=== PATIENT | female | born 1945 | race Caucasian/White ===

== ENCOUNTER → 2021-05-09 | Outpatient (CLI) | payer OTHER | LOC: RAD 16:41 | DX: J44.9 Chronic obstructive pulmonary disease, unspecified (principal); R91.8 Other nonspecific abnormal finding of lung field | CPT/HCPCS: 71046 ==

== ENCOUNTER → 2021-05-09 | Outpatient (CLI) | payer OTHER | LOC: HEART 5 14:51 | DX: R06.00 Dyspnea, unspecified (principal) | CPT/HCPCS: 94060; 94729 ==

== ENCOUNTER → 2021-05-17 | Outpatient (CLI) | payer OTHER | LOC: ECHO 08:00 | DX: J44.9 Chronic obstructive pulmonary disease, unspecified (principal); R06.02 Shortness of breath | CPT/HCPCS: ECHO; 93306 ==

== ENCOUNTER → 2021-10-03 | Outpatient (CLI) | payer OTHER | LOC: KOH-I 14:55 | DX: J84.10 Pulmonary fibrosis, unspecified (principal) | CPT/HCPCS: 71250 ==